=== PATIENT | female | born 2000 | race African-American/Black ===

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

== ENCOUNTER 2019-08-09 13:56 | Emergency (ER) | payer OTHER | END 2019-08-09 15:50 | disposition home or self-care (01) | LOC: ERS 13:56 | DX: J06.9 Acute upper respiratory infection, unspecified (principal) | CPT/HCPCS: 87081; 87430; 99283 ==

== ENCOUNTER 2020-03-31 21:41 | Emergency (ER) | payer SELFPAY ==
[2020-03-31] MEDS ORDERED: Ondansetron PF 4 MG/2 ML Vial ONE ×2 (22:32→22:55)
[2020-03-31 23:12] LABS: Bilirubin Negative (Negative); Blood, Urine 3+ (Negative); Clarity Turbid (Clear); Glucose, Urine (Dipstick) Normal (Negative); Ketone, Urine 100 mg/dL (Negative); Leukocyte 500 Leu/uL (Negative); Mucous/LPF Rare LPF (<2+); Nitrite Negative (Negative); Protein, Urine (Dipstick) 30 mg/dL (Neg-Trace); Squamous Epithelial 21-50 HPF (0-3); Urobilinogen Normal mg/dL (Less than 2); pH, Urine 5.5 (5.0-9.0)
[2020-03-31 23:17] LABS: Bacteria/HPF 3+ HPF (None Seen)
[2020-03-31 23:44] LABS: BHCG - Serum Negative (NEGATIVE); Pregs Control Background? CLEAR/WHITE (CLR/WHITE); Pregs Control Bar Appear? YES (CONTROL BAR)
[2020-03-31 23:48] LABS: Mean Corpuscular HGB CONC 31.3 g/dL (32.0-36.0); Mean Corpuscular Hemoglobin 23.7 pg (27.0-31.0); Mean Corpuscular Volume 75.7 fL (78.0-98.0); Mean Platelet Volume 8.4 fL (7.4-10.4); Platelet Count 385 thou/uL (130-400); RBC Distribution Width 15.3 % (11.5-14.5); Red Blood Cell (RBC) Count 5.05 mill/uL (4.20-5.40); White Blood Cell (WBC) Count 24.2 thou/uL (4.8-10.8)
[2020-03-31 23:49] LABS: Band 19 % (5-11); Eosinophils 1 % (0-10); Lymphocytes 11 % (21-51); MDiff Complete? YES; Neutrophil 69 % (42-75); Platelet Morphology Comment Appears Adequate
[2020-04-01] LABS: ALT (SGPT) 49 U/L (8-55); AST (SGOT) 34 U/L (5-34); Albumin 4.6 g/dL (3.5-5.0); Alkaline Phosphatase 101 U/L (40-110); Anion Gap 15 mmol/L (10-20); BUN (Urea Nitrogen) 7 mg/dL (7.0-18.7); Bilirubin, Total 0.3 mg/dL (0.2-1.2); Calc. Creatinine Clearance 0 mL/min (70-130); Calcium 9.4 mg/dL (7.8-10.44); Carbon Dioxide 24 mmol/L (22-29); Chloride 104 mmol/L (98-107); Estimated GFR-MDRD Greater than 90; Globulin 4.4 g/dL (2.4-3.5); Glucose 106 mg/dL (70-105); Lipase 19 U/L (8-78); Potassium 3.6 mmol/L (3.5-5.1); Sodium 139 mmol/L (136-145)
[2020-04-01] MEDS ORDERED: Morphine 4 MG/ML VIAL ONE (00:25)
--- NOTE | 2020-04-01 07:22 | RAD ---
RADIOGRAPH CHEST ONE VIEW RADIOGRAPH ABDOMEN 2 VIEWS: DATE: 04/01/2020 HISTORY: 20-year-old female with abdominal pain, nausea, vomiting, and diarrhea FINDINGS: The visualized lung jimenez are clear. The cardiomediastinal silhouette and hilar shadows are normal. The lateral costophrenic angles are sharp. The osseous structures appear normal. There is no evidence of pneumothorax or pneumoperitoneum. The bowel gas pattern is normal, with no evidence of small bowel dilation or differential air/fluid l evels. There is no evidence of organomegaly. IMPRESSION: Negative.
--- NOTE | 2020-04-01 07:26 | CT ---
PRELIMINARY REPORT/[facility]/EMERGENCY AFTER HOURS PROCEDURE: EXAM: CT Abdomen and Pelvis with Intravenous Contrast CLINICAL HISTORY: PT REPORTS LOWER ABDOMINAL PAIN WITH ASSOCIATED N/V/D ONSET THIS EVENING AFTER RECE IVING 2 ABX TODAY FOR TREATMENT OF GONNORRHEA/ TECHNIQUE: Axial computed tomography images of the abdomen and pelvis with intravenous contrast. CONTRAST: With; ISOVUE 370, 95ML COMPARISON: None provided. FINDINGS: LUNG BASES: No basilar airspace consolidation or pleural effusion. LIVER: Unremarkable. GALLBLADDER AND BILE DUCTS: Unremarkable. No calcified stone. No ductal dilation. PANCREAS: Unremarkable. SPLEEN: Unremarkable. ADRENAL GLANDS: Unremarkable. KIDNEYS, URETERS, AND BLADDER: Unremarkable. No hydronephrosis or nephrolithiasis. No ureteral or moustapha dder calculi. STOMACH AND BOWEL: No CT evidence of acute diverticulitis or colitis. There are several loops of sma ll bowel within the lower abdomen/pelvis which demonstrate possible mild wall thickening. There is no other small bowel wall thickening identified. No evidence of obstruction. APPENDIX: No CT evidence for appendicitis. PERITONEUM: No free fluid. No free air. LYMPH NODES: No lymphadenopathy. REPRODUCTIVE: Unremarkable as visualized. VASCULATURE: No aortic aneurysm. BONES: No fracture or suspicious osseous abnormality. ABDOMINAL WALL AND SOFT TISSUES: Unremarkable. IMPRESSION: Possible subtle wall thickening of several loops of small bowel within the lower abdomen/ pelvis, nonspecific but may represent enteritis in the proper clinical setting. No other acute intra-abdominal or pelvic abnormalities visualized. ELECTRONICALLY SIGNED BY: Arian Huggins DO Apr 01, 2020 12:43:06 AM CDT FINAL REPORT EXAM: CT ABDOMEN AND PELVIS HISTORY: Abdomen pain. Nausea vomiting diarrhea. COMPARISON: None. Procedure: Multiple contiguous axial images were obtained and a CT of the abdomen and pelvis with IV contrast. C oronal reformats were performed. FINDINGS: Lower Chest: within normal limits. Vessels: Normal caliber aorta. Heart: Normal heart size. Abdomen: Portal vein:Patent. Gallbladder: No calcified gallstones. Normal caliber wall. Liver: within normal limits. Pancreas: within normal limits. Spleen: within normal limits. Adrenals: within normal limits. Kidneys: Symmetric enhancement. No obstructive uropathy. Peritoneum: No ascites or free air, no fluid collection. Bowel: Limited evaluation of the alimentary canal due to lack of oral contrast. No evidence of a bunny l obstruction. There are segments of slightly prominent fluid-filled loops of small bowel. Correlate for possible enteritis with associated developing ileus. Normal caliber appendix. Colon is decompressed. Mesentery and Retroperitoneum: No enlarged mesenteric or retroperitoneal lymph nodes. Abdominal Wall: Small umbilical hernia containing mesenteric fat. Pelvis: Reproductive Organs: Reproductive organs are unremarkable. Pelvis: No mass, lymphadenopathy, free air or free fluid. Bladder: Within normal limits. Bones: Within normal limits. IMPRESSION: 1. This report is in agreement with the initial report by [facility]. 2. All wall thickening and fluid noted in segments of small bowel likely representing an enteritis. E valuate ileus cannot be entirely excluded. Continued surveillance recommended. Transcribed Date/Time: 04/01/2020 7:41 AM
[2020-04-01] MEDS ORDERED: Iopamidol-370 76% 500 ML 1 ML ONE (11:56)
== END 2020-04-01 01:08 | disposition home or self-care (01) ==
LOC: ERS 21:41
DX: R10.9 Unspecified abdominal pain (principal); R19.7 Diarrhea, unspecified; R11.2 Nausea with vomiting, unspecified
CPT/HCPCS: 36415; 74022; 74177; 80053; 81003; 81015; 83690; 84703; 85025; 96361; 96372; 96374; 96375; J0500; J2270; J2405; Q9967

== ENCOUNTER 2020-10-14 13:32 | Emergency (ER) | payer OTHER, SELFPAY ==
[2020-10-14] MEDS ORDERED: Lorazepam 2 MG/ML VIAL ONE ×2 (13:37→13:53)
== END 2020-10-14 14:40 | disposition home or self-care (01) ==
LOC: ERS 13:32
DX: Z04.1 Encounter for examination and observation following transport accident (principal); F41.1 Generalized anxiety disorder; Z79.84 Long term (current) use of oral hypoglycemic drugs; V89.2XXA Person injured in unspecified motor-vehicle accident, traffic, initial encounter
CPT/HCPCS: 99283; J2060

== ENCOUNTER 2022-04-07 20:15 | Emergency (ER) | payer OTHER ==
[2022-04-07] MEDS ORDERED: Acetaminophen 325 MG TAB ONE (21:14)
[2022-04-07 21:36] LABS: Bacteria/HPF None Seen HPF (None Seen); Bilirubin Negative (Negative); Blood, Urine Trace (Negative); Clarity Clear (Clear); Glucose, Urine (Dipstick) Normal (Negative); Ketone, Urine Negative (Negative); Leukocyte 75 Leu/uL (Negative); Nitrite Negative (Negative); Protein, Urine (Dipstick) Negative (Neg-Trace); RBC/HPF 0-3 HPF (0-3); Specific Gravity, Urine 1.011 (1.002-1.036); Urobilinogen Normal mg/dL (Less than 2); WBC/HPF 0-3 HPF (0-3)
[2022-04-07 21:51] LABS: #Eosinphils 0.1 thou/uL (0.0-0.7); #Lymphocytes 1.6 thou/uL (1.20-3.40); #Neutrophils 14.5 thou/uL (1.40-6.50); %Basophils 0.3 % (0.0-1.0); %Eosinophils 0.4 % (0.0-10.0); %Lymphocytes 9.3 % (21.0-51.0); Hemoglobin 11.7 g/dL (12.0-16.0); Mean Corpuscular HGB CONC 34.7 g/dL (32.0-36.0); Mean Corpuscular Hemoglobin 31.2 pg (27.0-31.0); Mean Corpuscular Volume 89.9 fL (78.0-98.0); Mean Platelet Volume 7.7 fL (7.4-10.4); Platelet Count 248 thou/uL (130-400); RBC Distribution Width 12.8 % (11.5-14.5); Red Blood Cell (RBC) Count 3.74 mill/uL (4.20-5.40); White Blood Cell (WBC) Count 17.3 thou/uL (4.8-10.8)
[2022-04-07 21:52] LABS: BHCG - Serum POSITIVE (NEGATIVE); Pregs Control Background? CLEAR/WHITE (CLR/WHITE); Pregs Control Bar Appear? YES (CONTROL BAR)
[2022-04-07 21:57] LABS: ALT (SGPT) 13 U/L (8-55); AST (SGOT) 15 U/L (5-34); Albumin 3.6 g/dL (3.5-5.0); Alkaline Phosphatase 55 U/L (40-110); Anion Gap 14 mmol/L (10-20); BUN (Urea Nitrogen) 5 mg/dL (7.0-18.7); Bilirubin, Total 0.2 mg/dL (0.2-1.2); Calc. Creatinine Clearance 0 mL/min (70-130); Calcium 9.4 mg/dL (7.8-10.44); Carbon Dioxide 22 mmol/L (22-29); Chloride 105 mmol/L (98-107); Estimated GFR 129; Globulin 3.7 g/dL (2.4-3.5); Glucose 83 mg/dL (70-105); Lipase 14 U/L (8-78); Potassium 3.5 mmol/L (3.5-5.1); Protein, Total 7.3 g/dL (6.0-8.3); Sodium 137 mmol/L (136-145)
[2022-04-07] MEDS ORDERED: Morphine 4 MG/ML VIAL ONE (21:59)
== END 2022-04-07 22:47 | disposition home or self-care (01) ==
LOC: ERS 20:15
DX: O26.892 Other specified pregnancy related conditions, second trimester (principal); R10.9 Unspecified abdominal pain; Z3A.16 16 weeks gestation of pregnancy
CPT/HCPCS: 76705; 80053; 81003; 81015; 83690; 84703; 85025; 87086; 96361; 96374; J2270

== ENCOUNTER 2022-06-12 22:29 | Emergency (ER) | payer OTHER | END 2022-06-13 00:02 | disposition home or self-care (01) | LOC: ERS 22:29 | DX: O36.8120 Decreased fetal movements, second trimester, not applicable or unspecified (principal); Z3A.20 20 weeks gestation of pregnancy | CPT/HCPCS: 99283 ==

== ENCOUNTER 2022-08-22 02:59 | Emergency (ER) | payer OTHER | END 2022-08-22 03:59 | disposition short-term general hospital (02) | LOC: EEVIPCON 02:59 → ERS 02:59 | DX: O60.14X0 Preterm labor third trimester with preterm delivery third trimester, not applicable or unspecified (principal); Z3A.33 33 weeks gestation of pregnancy | CPT/HCPCS: 99284 ==